=== PATIENT | female | born 1995 | race Two or more races ===

== ENCOUNTER 2018-05-22 22:44 | Emergency (ER) | payer OTHER ==
[2018-05-22] MEDS ORDERED: NS 1,000 ML IV ONE ×2 (23:11→23:15)
--- NOTE | 2018-05-22 23:15 | EDPHY ---
H & P Stated Complaint: abd pain x 1 day , + nausa and vomiting - Personal History LMP (Females 10-55): Now Current Tetanus Diphtheria and Acellular Pertussis (TDAP): Yes - Medical/Surgical History Hx Asthma: No Hx Chronic Respiratory Disease: No Hx Diabetes: No Hx Cardiac Disease: No Hx Renal Disease: No Hx Cirrhosis: No Hx Alcoholism: No Hx HIV/AIDS: No Hx Splenectomy or Spleen Trauma: No Other PMH: none - Social History Smoking Status: Never smoked Time Seen by Provider: 05/22/18 23:01 HPI/ROS: CHIEF COMPLAINT: Abdominal pain HISTORY OF PRESENT ILLNESS: 22-year-old female complaining of 24 hr of right upper quadrant and epigastric pain with associated nausea vomiting diarrhea. Last food intake was 6:00 p.m. tonight consisting of soup which he tolerated well. No melena hematochezia. No back or flank pain. No fever or chills. No urinary abnormality such as dysuria hematuria increased frequency. PRIMARY CARE PROVIDER: REVIEW OF SYSTEMS: 10 systems reviewed and negative with the exception of the elements mentioned in the history of present illness PAST MEDICAL & SURGICAL HISTORY: Beyond no history of abdominal surgery. SOCIAL HISTORY: Nonsmoker PHYSICAL EXAM (Prior to examination, patient consented to physical exam, hands were washed and my usual and customary physical exam procedures followed) 1) GENERAL: obese, alert and oriented. Appears to be in no acute distress. 2) HEAD: Normocephalic, atraumatic 3) HEENT: Pupils equal, round, reactive to light bilaterally. Sclera anicteric. 4) NECK: Full range of motion, no meningeal signs. 5) LUNGS: Clear auscultation bilaterally, no wheezes, no rhonchi, no retractions. 6) HEART: Regular rate and rhythm, no murmur, no heave, no gallop. 7) ABDOMEN: tender to palpation right upper quadrant and right lower quadrant., negative Rovsing's, negative peritoneal sign, 8) MUSCULOSKELETAL: Moving all extremities, no focal areas of tenderness, no obvious trauma. No peripheral edema or discoloration. 9) BACK: No CVA tenderness, no midline vertebral tenderness, no fluctuance, no step-off, no obvious trauma, no visual or palpable abnormality. 10) SKIN: No rash, no petechiae.] 11) Psychiatric: Patient is oriented X 3, there is no agitation DIFFERENTIAL DIAGNOSIS: In no particular order, including but not limited to biliary colic, cholecystitis, peptic ulcer disease, pancreatitis, and gastroenteritis. This is a partial list of diagnoses considered. These considerations are based on history, physical exam, past history and reassessment. (Devin Gtz) Constitutional: Initial Vital Signs Temperature (C) 37.2 C 05/22/18 22:46 Heart Rate 102 H 05/22/18 22:46 Respiratory Rate 16 05/22/18 22:46 Blood Pressure 126/94 H 05/22/18 22:46 O2 Sat (%) 96 05/22/18 22:46 O2 Delivery Mode Room Air Allergies/Adverse Reactions: No Known Allergies Allergy (Unverified 05/22/18 22:49) Home Medications: Medication Instructions Recorded NK [No Known Home Meds] 05/22/18 Medical Decision Making - Diagnostics Imaging Results: CT Abdomen and Pelvis with Intravenous Contrast CLINICAL HISTORY: Right flank pain, 85ml of iso 300 used TECHNIQUE: Axial computed tomography images of the abdomen and pelvis with intravenous contrast. CONTRAST: With; ISOVUE 300 0 COMPARISON: US\\OT - ABDOMEN LIMITED - 05/22/2018 11:50 PM MDT FINDINGS: LUNG BASES: No basilar airspace consolidation or pleural effusion. LIVER: Unremarkable. GALLBLADDER AND BILE DUCTS: Unremarkable. No calcified stone. No ductal dilation. PANCREAS: Unremarkable. SPLEEN: Unremarkable. ADRENAL GLANDS: Unremarkable. KIDNEYS, URETERS, AND BLADDER: Unremarkable. No hydronephrosis or nephrolithiasis. No ureteral or bladder calculi. STOMACH AND BOWEL: No obstruction. No wall thickening. No CT evidence of colitis or acute diverticulitis. APPENDIX: The appendix is within normal limits. PERITONEUM: No free fluid. No free air. LYMPH NODES: No lymphadenopathy. REPRODUCTIVE: The uterus and adnexa are grossly normal. VASCULATURE: No aortic aneurysm. BONES: No fracture or suspicious osseous abnormality. ABDOMINAL WALL AND SOFT TISSUES: Unremarkable. IMPRESSION: No acute intra-abdominal or pelvic abnormality. ELECTRONICALLY SIGNED BY: Ramandeep Ocasio MD (Jonnathan Nevarez) ED Course/Re-evaluation: 12:20 a.m.: Tele radiology interpretation shows "fatty infiltration of the liver with acute process on this limited study". Re-evaluated the patient at this time. She is now complaining of right lower quadrant. I re-examined her she is focally tender to palpation right lower quadrant. Will obtain CT imaging the abdomen and pelvis. Discussed indications risks benefits and she consents. 1:30 a.m.: Care transferred to Dr. Nevarez (Devin Gtz) Other Provider: [address]10 [address] scan results negative. No acute process noted. Laboratory evaluations show mild elevation in transaminases, otherwise negative. Will discharge patient home with outpatient follow-up. (Jonnathan Nevarez) - Data Points Laboratory Results: Laboratory Results 05/22/18 23:29 05/22/18 23:29 05/22/18 05/22/18 05/22/18 23:29 23:29 23:29 WBC 7.63 10^3/uL 10^3/uL (3.80-9.50) RBC 4.70 10^6/uL 10^6/uL (4.18-5.33) Hgb 13.6 g/dL g/dL (12.6-16.3) Hct 43.1 % % (38.0-47.0) MCV 91.7 fL fL (81.5-99.8) MCH 28.9 pg pg (27.9-34.1) MCHC 31.6 g/dL L g/dL (32.4-36.7) RDW 13.4 % % (11.5-15.2) Plt Count 277 10^3/uL 10^3/uL (150-400) MPV 10.5 fL fL (8.7-11.7) Neut % (Auto) 61.0 % % (39.3-74.2) Lymph % (Auto) 28.6 % % (15.0-45.0) [place] % (Auto) 8.1 % % (4.5-13.0) Eos % (Auto) 1.6 % % (0.6-7.6) Baso % (Auto) 0.4 % % (0.3-1.7) Nucleat RBC Rel Count 0.0 % % (0.0-0.2) Absolute Neuts (auto) 4.66 10^3/uL 10^3/uL (1.70-6.50) Absolute Lymphs (auto) 2.18 10^3/uL 10^3/uL (1.00-3.00) Absolute Monos (auto) 0.62 10^3/uL 10^3/uL (0.30-0.80) Absolute Eos (auto) 0.12 10^3/uL 10^3/uL (0.03-0.40) Absolute Basos (auto) 0.03 10^3/uL 10^3/uL (0.02-0.10) Absolute Nucleated RBC 0.00 10^3/uL 10^3/uL (0-0.01) Immature Gran % 0.3 % % (0.0-1.1) Immature Gran # 0.02 10^3/uL 10^3/uL (0.00-0.10) Sodium 140 mEq/L mEq/L (135-145) Potassium 4.3 mEq/L mEq/L (3.5-5.2) Chloride 107 mEq/L mEq/L (97-110) Carbon Dioxide 22 mEq/l mEq/l (22-31) Anion Gap 11 mEq/L mEq/L (6-14) BUN 10 mg/dL mg/dL (7-23) Creatinine 0.6 mg/dL mg/dL (0.6-1.0) Estimated GFR > 60 Glucose 105 mg/dL H mg/dL (70-100) Calcium 9.3 mg/dL mg/dL (8.5-10.4) Total Bilirubin 0.7 mg/dL mg/dL (0.1-1.4) Conjugated Bilirubin 0.3 mg/dL mg/dL (0.0-0.5) Unconjugated Bilirubin 0.4 mg/dL mg/dL (0.0-1.1) AST 65 IU/L H IU/L (14-46) ALT 89 IU/L H IU/L (9-52) Alkaline Phosphatase 38 IU/L IU/L (38-126) Total Protein 7.6 g/dL g/dL (6.3-8.2) Albumin 4.4 g/dL g/dL (3.5-5.0) Lipase 95 IU/L IU/L (23-300) Beta HCG, Qual NEGATIVE Medications Given: Discontinued Medications Sodium Chloride (Ns) 1,000 mls @ 0 mls/hr IV EDNOW ONE; Wide Open PRN Reason: Protocol Stop: 05/22/18 23:12 Last Admin: 05/22/18 23:27 Dose: 1,000 mls Sodium Chloride (Ns) 1,000 mls @ 0 mls/hr IV ONCE ONE PRN Reason: Wide Open Stop: 05/22/18 23:16 Last Admin: 05/22/18 23:37 Dose: 1,000 mls Departure - Departure Disposition: Home, Routine, Self-Care Clinical Impression: Abdominal pain Condition: Good Instructions: Acute Abdominal Pain (ED) Additional Instructions: Seek immediate medical attention if you develop new or worsening symptoms, if you develop fevers, chills, inability to tolerate oral intake or any other symptoms that concerns you. Referrals: [facility],. [Clinic] - 1 day without fail
[2018-05-22 23:39] LABS: PLATELET COUNT 277 10^3/uL (150-400)
[2018-05-23] MEDS ORDERED: IOPAMIDOL (ISOVUE-300) 100 ML BTL ONE (00:44)
[2018-05-23 02:36] VITALS: BP 128/80
== END 2018-05-23 02:44 | disposition home or self-care (01) ==
DX: R10.11 Right upper quadrant pain (principal); R10.13 Epigastric pain; R11.2 Nausea with vomiting, unspecified; R19.7 Diarrhea, unspecified; K76.0 Fatty (change of) liver, not elsewhere classified; E86.9 Volume depletion, unspecified
CPT/HCPCS: Q9967